=== PATIENT | female | born 1965 | race Caucasian/White ===

== ENCOUNTER 2018-12-04 21:55 | Emergency (ER) | payer OTHER ==
[2018-12-05 00:35] LABS: URINE PH (Dip) POC 5.5 (5.0-8.5)
[2018-12-05 00:35] LABS: URINE BLOOD (Dip) POC Negative (NEGATIVE); URINE GLUCOSE (Dip) POC Negative (NEGATIVE); URINE KETONES (Dip) POC Trace (NEGATIVE); URINE LEUKOCYTE EST (Dip) POC 1+ (NEGATIVE); URINE NITRITE (Dip) POC Negative (NEGATIVE); URINE TOTAL PROTEIN POC Trace (NEGATIVE)
== END 2018-12-05 01:52 | disposition home or self-care (01) ==
LOC: FTE 21:55
DX: R30.0 Dysuria (principal)
CPT/HCPCS: 81003; 81025; 99283